=== PATIENT | male | born 1980 | race Two or more races ===

== ENCOUNTER 2022-05-14 19:51 | Emergency (ER) | payer OTHER ==
[~2022-05-14] VITALS: Ht 172.7 cm; Wt 90.7 kg
[2022-05-14] MEDS ORDERED: TOPROL XL25 M1 PO (19:57)
[2022-05-14] MEDS ORDERED: HYDROCHLOROTHIA25 MG PO (19:57)
[2022-05-14] MEDS ORDERED: XIGDUO XR 10 M1 EAC1 PO (19:58)
[2022-05-14] MEDS ORDERED: ATORVASTATIN CA20 MG PO (19:58)
[2022-05-14] MEDS ORDERED: CHILDREN'S ASPI81 MG PO (19:58)
[2022-05-14] MEDS ORDERED: GLUMETZA1000 MG PO (19:58)
== END 2022-05-14 23:50 | disposition home or self-care (01) ==
LOC: ER 19:51
DX: M62.838 Other muscle spasm (principal); Z88.0 Allergy status to penicillin; Z88.8 Allergy status to other drugs, medicaments and biological substances